=== PATIENT | male | born 1950 | race Caucasian/White ===

== ENCOUNTER 2018-08-08 16:41 | Emergency (ER) | payer MEDICARE, BC ==
[~2018-08-08] VITALS: Ht 180.3 cm; Wt 99.5 kg
[2018-08-08 16:51] VITALS: TEMP 98.5
[2018-08-08] MEDS ORDERED: BYSTOLIC10 MG PO (17:06)
[2018-08-08] MEDS ORDERED: ALDACTONE 25MG25 M1 PO (17:06)
[2018-08-08] MEDS ORDERED: PRINIVIL20 MG PO (17:06)
[2018-08-08] MEDS ORDERED: ASPIRIN 81M81 MG/TA2 PO (17:06)
[2018-08-08 17:19] LABS: BASO # 0.1 (0.0-0.2); BASO % 1.4 % (0.0-2.0); EOS # 0.1 (0.0-0.7); EOS % 1.4 % (0-4.0); GRAN # 5.6 (1.4-6.5); GRAN % 63.6 % (42.2-75.2); HEMATOCRIT 39.1 % (42.0-52.0); HEMOGLOBIN 13.9 g/dl (13.5-18.0); LYMPH # 2.2 (1.2-3.4); LYMPH % 25.5 % (20.0-51.0); MEAN CELL VOLUME 86 fl (80.0-100.0); MEAN CORPUSCULAR HEMOGLOBIN 31 pg (27.0-31.0); MEAN CORPUSCULAR HGB CONC 36 g/dl (33.0-37.0); MONO # 0.6 (0.1-0.6); MONO % 7.2 % (1.7-9.3); PLATELET COUNT 248 K/mm3 (130-400); RED BLOOD COUNT 4.53 M/mm3 (4.20-5.60); REDCELL DISTRIBUTION WIDTH-CV 13.1 % (11.5-14.5)
[2018-08-08 17:32] LABS: C-REACTIVE PROTEIN 1.1 mg/dL (0.0-0.9)
[2018-08-08] MEDS ORDERED: MOTRIN 600600 MG/TAB PO (18:24)
[2018-08-08 18:51] VITALS: BP 173/80; PULSE 66
== END 2018-08-08 18:53 | disposition home or self-care (01) ==
LOC: COL.ER 16:41
PROVIDERS: Emergency Medicine
DX: S76.111A Strain of right quadriceps muscle, fascia and tendon, initial encounter (principal); J44.9 Chronic obstructive pulmonary disease, unspecified; I10 Essential (primary) hypertension; Z79.82 Long term (current) use of aspirin; X50.0XXA Overexertion from strenuous movement or load, initial encounter; Y92.009 Unspecified place in unspecified non-institutional (private) residence as the place of occurrence of the external cause
CPT/HCPCS: J1885